=== PATIENT | female | born 1990 | race Caucasian/White ===

== ENCOUNTER 2019-07-25 08:33 | Emergency (ER) | payer BC ==
[2019-07-25 08:49] VITALS: BP 111/65
--- NOTE | 2019-07-25 08:51 | UC ---
Throat Pain/Nasal Gautam HPI - HPI Summary HPI Summary: 28yo with onset of laryngitis yesterday, along with a dry cough. No fever, headache, or body aches. She has mild dysphagia. - History of Current Complaint Chief Complaint: UCRespiratory Stated Complaint: NO VOICE COUGH Time Seen by Provider: 07/25/19 08:44 Hx Obtained From: Patient Hx Last Menstrual Period: 07/10/19 Onset/Duration: Gradual Onset, Lasting Days - 2 Severity: Mild Pain Intensity: 0 Cough: Nonproductive Associated Signs & Symptoms: Positive: Dysphagia, Hoarseness. Negative: Wheezing, Sinus Discomfort, Fever - Epiglottits Risk Factors Epiglottis Risk Factors: Negative - Allergies/Home Medications Allergies/Adverse Reactions: Allergies Allergy/AdvReac Type Severity Reaction Status Date / Time MS Amoxicillin [Amoxicillin] Allergy Rash Verified 01/06/19 10:21 Home Medications: Home Medications Valacyclovir HCl [Valtrex] 2 tab PO PRN 06/25/15 [History] PMH/Surg Hx/FS Hx/Imm Hx Previously Healthy: Yes - Surgical History Surgical History: None - Family History Known Family History: Positive: Diabetes - Social History Occupation: Employed Full-time Lives: With Family Alcohol Use: None Substance Use Type: None Smoking Status (MU): Never Smoked Tobacco - Immunization History Most Recent Tetanus Shot: unknown Review of Systems All Other Systems Reviewed And Are Negative: Yes Constitutional: Positive: Negative Skin: Positive: Negative Eyes: Positive: Negative ENT: Positive: Sore Throat Respiratory: Positive: Cough. Negative: Shortness Of Breath Cardiovascular: Negative: Chest Pain Gastrointestinal: Positive: Negative Genitourinary: Positive: Negative Motor: Positive: Negative Neurovascular: Positive: Negative Musculoskeletal: Positive: Negative Neurological/Mental Status: Positive: Negative Physical Exam Triage Information Reviewed: Yes Appearance: Well-Appearing, No Pain Distress, Other: - Hoarse voice. Vital Signs: Initial Vital Signs Temp 99.1 F 07/25/19 08:44 Pulse 65 07/25/19 08:44 Resp 16 07/25/19 08:44 BP 111/65 07/25/19 08:44 Pulse Ox 99 07/25/19 08:44 Eye Exam: Normal ENT: Positive: Pharynx normal, TMs normal. Negative: Tonsillar swelling, Tonsillar exudate Neck: Positive: Supple, Nontender, No Lymphadenopathy Respiratory: Positive: Lungs clear, Normal breath sounds Cardiovascular: Positive: RRR, No Murmur Musculoskeletal Exam: Normal Neurological Exam: Normal Psychological Exam: Normal Skin Exam: Normal Throat Pain/Nasal Course/Dx - Course Course Of Treatment: discussed symptomatic treatment of viral illness. - Differential Dx/Diagnosis Differential Diagnosis/HQI/PQRI: Laryngitis, Pharyngitis, Sinusitis, URI Provider Diagnosis: Laryngitis Discharge ED - Sign-Out/Discharge Documenting (check all that apply): Patient Departure All imaging exams completed and their final reports reviewed: No Studies - Discharge Plan Condition: Stable Disposition: HOME Patient Education Materials: Laryngitis (ED) Referrals: No Primary Care Phys,NOPCP [Primary Care Provider] - Additional Instructions: Treatment of laryngitis is symptomatic, with use of warm drinks and lozenges to relieve the sore throat. Your tonsils appear normal. Use ibuprofen 600mg up to 3 times per day to relieve the soreness in your throat. Follow up if you develop cough or fever. - Billing Disposition and Condition Condition: STABLE Disposition: Home
== END 2019-07-25 09:11 | disposition home or self-care (01) ==
LOC: UCEAST 08:33
DX: J04.0 Acute laryngitis (principal); Z88.0 Allergy status to penicillin
CPT/HCPCS: 99211; G0463